=== PATIENT | female | born 2000 | race Two or more races ===

== ENCOUNTER 2024-07-06 16:05 | Emergency (ER) | payer MEDICAID, SELFPAY ==
[2024-07-06 16:05] VITALS: BMI 32.9
[2024-07-06 16:07] VITALS: BP 137/81; PULSE 88; RESP 19; TEMP 36.4; O2SAT 98
--- NOTE | 2024-07-06 16:47 | XR_ITS ---
Examination: Complete OB ultrasound, less than 14 weeks, transabdominal Date and time of exam: July 06, 2024 1714 hrs. Indications: Vaginal bleeding today, positive test one week ago Technique: Obstetrical ultrasound images less than 14 weeks performed via transabdominal imaging Findings: Uterus 9.0 x 4.8 x 4.8 cm Endometrial stripe 14 mm No uterine mass or intrauterine gestation Right ovary 2.7 x 1.3 x 1.8 cm arterial flow Left ovary 2.9 x 1.7 x 1.87 arterial flow Impression: No uterine mass or intrauterine gestation Consider transvaginal pelvic sonography follow-up
--- NOTE | 2024-07-06 16:48 | PD.EDRME ---
Rapid Medical Screening Exam RME Arrival date/time: 07/06/24 16:05 24-year-old female presents emergency department complaints of vaginal bleeding she does report she is 3 para 2 A0, is currently 7 weeks of gestation. I have greeted and performed a focused initial assessment of this patient. Initial appropriate labs ordered at this time. A comprehensive ED assessment and evaluation of the patient and analysis of all test and completion of medical decision making process will be conducted by additional ED provider. Chief Complaint: Vaginal Bleeding Time Seen by Provider: 07/06/24 16:35 Vital signs: Vital Signs Temperature 97.5 F 07/06/24 16:07 Pulse Rate 88 07/06/24 16:07 Respiratory Rate 19 07/06/24 16:07 Blood Pressure 137/81 H 07/06/24 16:07 Pulse Oximetry (%) 98 07/06/24 16:07 Oxygen Delivery Method Room Air 07/06/24 16:07
[2024-07-06 17:30] LABS: Basophils # (Auto) 0.1 Thou/mm3 (0.0-0.2); Basophils % (Auto) 1 % (0-2.5); Eosinophils % (Auto) 0 % (0-10); Hematocrit 38.2 % (36.0-46.0); Hemoglobin 12.2 g/dL (12.0-16.0); Immature Granulocytes % (Auto) 1 % (0-0); Immature Granulocytes Auto 0.06 Thou/mm3 (0.00-0.00); Lymphocytes # (Auto) 2.8 Thou/mm3 (1.0-4.8); Lymphocytes % (Auto) 26 % (10-50); Mean Corpuscular HGB Conc 31.9 g/dl (31.0-37.0); Mean Corpuscular Hemoglobin 23.4 pg (25.0-35.0); Mean Corpuscular Volume 73 fL (80-100); Monocytes # (Auto) 0.7 Thou/mm3 (0.0-0.8); Monocytes % (Auto) 7 % (0-12); Neutrophils # (Auto) 7.1 Thou/mm3 (1.8-7.7); Neutrophils % (Auto) 66 % (37-80); Nucleated Red Blood Cell % 0 /100 WBC (0); Platelet Count 321 Thou/mm3 (140-440); RDW Standard Deviation 38.1 fL (36.4-46.3); Red Blood Count 5.22 Miln/mm3 (4.00-5.20); White Blood Count 10.8 Thou/mm3 (3.6-11.0)
[2024-07-06 17:55] LABS: Collection Type, Urine Clean Catch
[2024-07-06 18:01] LABS: Bilirubin,Urine Negative (Negative); Blood,Urine 3+ (Negative); Clarity,Urine Clear (Clear/Hazy); Color,Urine Colorless (Lt Yel-Yel); Glucose, Urine Negative (Negative); Ketones,Urine Negative (Negative); Leukocyte Esterase,Urine Negative (Negative); Nitrite,Urine Negative (Negative); PH,Urine 6.5 (5.0-7.0); Protein,Urine Negative (Neg - Trace); RBC,Urine < 1 /hpf (0-3); Specific Gravity,Urine 1.005 (1.001-1.035); Squamous Epithelial Cell,Urine < 1 /hpf (0-5); Urobilinogen,Urine Negative mg/dL (0.0-1.0); WBC,Urine 1 /hpf (0-5)
[2024-07-06 18:02] LABS: Alanine Aminotransferase 15 U/L (10-49); Albumin, Serum 5.2 gm/dL (3.5-5.0); Albumin/Globulin Ratio 1.9 (1.2-2.2); Alkaline Phosphatase 60 U/L (46-116); Anion Gap 9 (7-16); Aspartate Amino Transferase 20 U/L (0-34); BUN/Creatinine Ratio 11 Ratio (12-20); Beta HCG,Quantitative 699 mIU/mL (<5.0); Bilirubin,Total 0.4 mg/dL (0.3-1.2); Blood Urea Nitrogen 9 mg/dL (9-23); Calcium 10.3 mg/dL (8.3-10.6); Calcium (Corrected) 10.3 mg/dL (8.5-10.1); Carbon Dioxide 24.1 mMol/L (20.0-31.0); Chloride 105 mMol/L (98-107); Creatinine (Component) 0.8 mg/dL (0.6-1.3); Estimated Creatinine Clearance 107.4 mL/min (>60); Globulin 2.7 gm/dL (2.3-3.5); Glucose 88 mg/dL (74-106); Osmolality,Calculated 273 (275-295); Potassium 3.5 mMol/L (3.4-5.1); Sodium 138 mMol/L (136-145); Total Protein 7.9 gm/dL (5.7-8.2); eGFR > 60 See Note
--- NOTE | 2024-07-06 20:00 | EDNOTE_ITS ---
ED OB Contraction Preg RMI/HPI General Chief complaint: Vaginal Bleeding Stated complaint: VAG BLEEDING 6 WEEKS PREG Time Seen by Provider: 07/06/24 16:35 Arrival date/time: 07/06/24 16:05 RME / HPI RME / HPI Narrative: 24-year-old female presents emergency department complaints of vaginal bleeding she does report she is 3 para 2 A0, is currently 7 weeks of gestation. Bleeding started earlier today, initially mild getting worse this time associated with dark-colored blood. Denies any abdominal pain. Denies any other complaints no medications taken prior to arrival. Related Data Home Medications ?Medication ?Instructions ?Recorded ?Confirmed ferrous sulfate 325 mg (65 mg 325 mg PO QDAY 01/11/19 07/04/19 iron) tablet vit no.95-ferrous 1 tab PO QDAY 01/11/19 07/04/19 fumarate 28 mg-folic acid 800 mcg tablet () Previous Rx's ?Medication ?Instructions ?Recorded hydrocodone 5 mg-acetaminophen 325 1 tab PO Q4H PRN pain #20 tabs // mg tablet Allergies Allergy/AdvReac Type Severity Reaction Status Date / Time No Known Allergies Allergy Verified 07/06/24 16:07 Review of Systems Review of Systems Narrative Review of Systems: Review of system reviewed and within normal limits except mentioned in HPI ED Exam Narrative Physical exam: VITAL SIGNS: Reviewed. GENERAL APPEARANCE: Alert and interactive, follows commands, no acute distress, HEAD AND FACE: Non-traumatic. ENT: PERRL, pink conjunctivitis, eyelid no trauma, Mucous membrane moist. NECK: Supple, nontender, no nuchal rigidity. CHEST: No tenderness, no crepitus, no paradoxical movement, no retractions. LUNGS: Clear, well ventilated, symmetric, no rales, no wheezing, no ronchi, no stridor, good breath sounds bilaterally. HEART: Regular rate, regular rhythm, no murmur, no gallops. ABDOMEN: Soft, positive bowel sounds, nondistended, no guarding, nontender, no rebound, no masses, RECTAL: Deferred. GENITAL: Deferred. NEUROLOGICAL: Gross motor function intact sensory function intact, Appropriate for age. MUSCULOSKELETAL: low back nontender, full range of motion. EXTREMITIES: Nontender, full range of motion. SKIN: Color pink, dry, no rash, no lacerations, no abrasions, no contusions. LYMPHATICS: Deferred. Course Quality Measures none Orders Category Date Time Status US OB <= 14 weeks fetus Stat Exams 07/06/24 16:47 Completed ABO/RH Type Stat Lab 07/06/24 17:05 Completed Beta HCG,Quantitative Stat Lab 07/06/24 17:05 Completed CBC Stat Lab 07/06/24 17:05 Completed Comprehensive Metabolic Panel Stat Lab 07/06/24 17:05 Completed Urinalysis Stat Lab 07/06/24 17:36 Completed Urine Culture Stat Lab 07/06/24 17:36 Received Vital Signs Vital signs: Vital Signs Temperature 97.5 F 07/06/24 16:07 Pulse Rate 88 07/06/24 16:07 Respiratory Rate 19 07/06/24 16:07 Blood Pressure 137/81 H 07/06/24 16:07 Pulse Oximetry (%) 98 07/06/24 16:07 Oxygen Delivery Method Room Air 07/06/24 16:07 Vaginal Bleeding MDM Narrative MDM Narrative: 24-year-old female presents emergency department complaints of vaginal bleeding she does report she is 3 para 2 A0, is currently 7 weeks of gestation. Bleeding started earlier today, initially mild getting worse this time associated with dark-colored blood. Denies any abdominal pain. Denies any other complaints no medications taken prior to arrival. Laboratory workup is significant for hCG of 699. The rest of the labs unremarkable. Ultrasound showed no IUP seen no abnormality noted. Patient data External records reviewed:: None Clinical information provided by:: patient Social determinants that could affect healthcare access:: none Patient has the following chronic illnesses:: None How is presenting disease/condition affected by chronic disease/condition?: no chronic disease Evaluation data The following diagnostics were reviewed and interpreted by me:: lab results and radiology exam(s) Lab and/or radiology exams considered but not ordered:: None Interpretation Summary: Laboratory workup is significant for hCG of 699. The rest of the labs unremarkable. Ultrasound showed no IUP seen no abnormality noted Medications / Prescriptions Medications or Prescriptions considered but not ordered:: None Medication administrations:: None Consultations Consultation(s) initiated? (list below): No Diagnosis Vaginal Bleeding Differential Diagnosis: threatened , vaginal bleeding and other ( vaginal bleeding) Most likely diagnosis given after review of the tests above:: Threatened Admission Indicated Admission indicated?: not indicated Explain why admission is indicated or not indicated:: Stable Admission Request Was there a request for admission?: No Disposition Plan Disposition Plan: Discharge Discharge Attestation Discharge Attestation: The patient was given an opportunity to ask questions and understood the discharge instructions. Discharge instructions specifically effects, indications for sooner follow up or return to the emergency department, and the expected course of current diagnosis. Patient condition: Stable Discharge Plan Plan Patient Disposition: HOME (Self Care) Disposition Comment: stable Prescriptions/Referrals Prescriptions/Med Rec: No Action hydrocodone-acetaminophen 5-325 mg tablet 1 tab PO Q4H MDD 5 PRN (Reason: pain) Qty: 20 0RF ferrous sulfate 325 mg (65 mg iron) tablet 325 mg PO QDAY PNV cmb#95-ferrous fumarate-FA [] 28 mg iron- 800 mcg tablet 1 tab PO QDAY Referrals: Elizabeth Olivo PA-C [Primary Care Provider] - In 1 week Problem List Clinical Impression: Threatened Patient/Caregiver Discharge Instructions Education Materials: ED Possible Miscarriage ... Additional Instructions: Thank you for the opportunity for serving you today. You are stable for disch arged . You are advised to: Follow-up with your HISTORICAL SITE GUIDE in 1 to 2 days Return to ED for worsening of symptoms Increase oral fluids Return to emergency room in 3 days for repeat hCG if you cannot see your HISTORICAL SITE GUIDE before that. Print Language: Ugandan Stand Alone Forms: Sita Award Info., Patient Portal Info Letter KATHRYN/ESTELLA Supervising Physician SUE Supervising Physician: MD Sharon
== END 2024-07-06 20:09 | disposition home or self-care (01) ==
PROVIDERS: Nurse Practitioner Primary Care; Emergency Provider Emergency Medicine; PCP Physician Assistant
DX: O20.0 Threatened abortion (principal); Z3A.01 Less than 8 weeks gestation of pregnancy
CPT/HCPCS: 36415; 76801; 80053; 81001; 84702; 85025; 86900; 86901; 87086; 99284

== ENCOUNTER 2024-07-09 14:16 | Emergency (ER) | payer MEDICAID, SELFPAY ==
[2024-07-09 14:53] VITALS: BP 139/83; PULSE 84; RESP 16; TEMP 37.2; O2SAT 100; BMI 31.2
--- NOTE | 2024-07-09 15:05 | PD.EDVAGBL ---
ED OB Contraction Preg RMI/HPI General Chief complaint: General Adult/Misc Complain Stated complaint: WANTS HCG LEVEL CHECK FOR A MISCARRIAGE Time Seen by Provider: 07/09/24 14:42 Source: patient Arrival date/time: 07/09/24 14:16 24-year-old female approximately 7 weeks presents emergency department requesting repeat hCG due to recent visit for vaginal bleeding and has not seen [employer] [employer]. Patient reports vaginal bleeding has improved. Patient denies any fever, chills, flank pain, dysuria, abdominal cramping, or any other associated symptom. Mode of arrival: ambulatory Limitations: no limitations Related Data Home Medications ?Medication ?Instructions ?Recorded ?Confirmed ferrous sulfate 325 mg (65 mg 325 mg PO QDAY 01/11/19 07/04/19 iron) tablet vit no.95-ferrous 1 tab PO QDAY 01/11/19 07/04/19 fumarate 28 mg-folic acid 800 mcg tablet () Previous Rx's ?Medication ?Instructions ?Recorded hydrocodone 5 mg-acetaminophen 325 1 tab PO Q4H PRN pain #20 tabs 07/26/ mg tablet Allergies Allergy/AdvReac Type Severity Reaction Status Date / Time No Known Allergies Allergy Verified 07/06/24 16:07 Review of Systems Review of Systems Systems Reviewed: All systems reviewed, normal except as documented Constitutional Constitutional: Reports system reviewed and no additional complaints, except as documented, Denies body ache(s), Denies chills and Denies fever(s) Eyes Eyes: Reports system reviewed and no additional complaints, except as documented and Denies change in vision ENT Ears, Nose, Mouth, and Throat: Reports system reviewed and no additional complaints, except as documented, Denies disequilibrium, Denies dizziness, Denies sore throat and Denies vertigo Cardiovascular Cardiovascular: Reports system reviewed and no additional complaints, except as documented, Denies chest pain and Denies dyspnea Respiratory Respiratory: Reports system reviewed and no additional complaints, except as documented, Denies chest congestion, Denies cough and Denies dyspnea Gastrointestinal Gastrointestinal: Reports system reviewed and no additional complaints, except as documented, Denies abdominal pain, Denies nausea and Denies vomiting Genitourinary Genitourinary: Reports abnormal vaginal bleeding Musculoskeletal Musculoskeletal: Reports system reviewed and no additional complaints, except as documented, Denies abnormal gait and Denies arthralgias Integumentary/Breasts Skin/Breast: Reports system reviewed and no additional complaints, except as documented, Denies erythema, Denies rash and Denies wounds Neurologic Neurologic: Reports system reviewed and no additional complaints, except as documented, Denies abnormal gait, Denies disequilibrium, Denies dizziness and Denies vertigo Past Medical History Past Medical History NEUROLOGIC: Negative Neurological Disorders CARDIAC: Negative Cardiac Disorders or Congestive Heart Failure RESPIRATORY: Negative Chronic Obstructive Pulmonary Disease (COPD) GASTROINTESTINAL: Negative Gastrointestinal Disorders GENITOURINARY: Positive Genitourinary Disorders and Kidney Stones; Negative Renal Disease REPRODUCTIVE: Negative Genital Herpes, Gonorrhea, Pelvic Inflammatory Disease or Syphilis MUSCULOSKELETAL: Negative Musculoskeletal Disorders ENDOCRINE: Negative Endocrine Disorders, Diabetes Mellitus Type 1 or Diabetes Mellitus Type 2 HEMATOLOGIC: Negative Blood Disorders OTHER HISTORY: Positive Hospitalization (LABOR); Negative Autoimmune Disease, Falls, Blood Transfusions, Blood Transfusion Reaction, Anesthesia Reactions, MRSA, Human Immunodeficiency Virus (HIV), Chicken Pox, Measles, Mumps, Rubella (Nigerien Measles), Pertussis, Clostridium Difficile or Cancer Family History FAMILY HISTORY: Negative Family Psychiatric Problems, Family Respiratory Disorders, Family Cardiac Disorders, Family Gastrointestinal Problems, Family Cancer, Family Surgery or Family Anesthesia Reaction Surgical History SURGICAL: Negative Section Social History SMOKING STATUS: Never smoker ED Exam General Limitations: Present no limitations General appearance: Present alert and in no apparent distress Head Head exam: Present atraumatic Eye Eye exam: Present normal appearance, PERRL and EOMI ENT ENT exam: Present normal exam, normal oropharynx and mucous membranes moist Neck Neck exam: Present normal inspection, full ROM and trachea midline Chest Chest inspection: Present normal inspection and symmetric chest wall rise Respiratory Respiratory exam: Present normal lung sounds bilaterally Cardiovascular Cardiovascular exam: Present regular rate, normal rhythm and normal heart sounds Abdominal Exam Abdominal exam: Present soft and normal bowel sounds Extremities Exam Extremities exam: Present normal inspection and full ROM Back Exam Back exam: Present normal inspection and full ROM Neurological Exam Neurological exam: Present alert, oriented X3 and CN II-XII intact Psychiatric Psychiatric exam: Present normal affect and normal mood Skin Skin exam: Present warm, dry, intact and normal color Course Quality Measures none Orders Category Date Time Status Beta HCG,Quantitative Stat Lab 07/09/24 15:34 Completed HCG,Qualitative Serum Stat Lab 07/09/24 15:34 Completed Urinalysis, C/S if Indicated Stat Lab 07/09/24 15:50 Completed Vital Signs Vital signs: Vital Signs Temperature 98.9 F 07/09/24 14:53 Pulse Rate 84 07/09/24 14:53 Respiratory Rate 16 07/09/24 14:53 Blood Pressure 139/83 H 07/09/24 14:53 Pulse Oximetry (%) 100 07/09/24 14:53 Oxygen Delivery Method Room Air 07/09/24 14:53 100% room air within normal limits Vaginal Bleeding MDM Narrative MDM Narrative: 24-year-old female approximately 7 weeks presents emergency department requesting repeat hCG due to recent visit for vaginal bleeding and has not seen [employer] [employer]. Patient reports vaginal bleeding has improved. Patient denies any fever, chills, flank pain, dysuria, abdominal cramping, or any other associated symptom. Patient appears nontoxic and hemodynamically stable. Patient reports changes 1 pad per day due to vaginal bleeding. Patient reports significantly improved and bleeding. Beta-hCG 66 downtrending compared to previous above 600s. Patient discharged and instructed to follow-up with [employer] to have repeat ultrasound and instructed to return to emergency department for any worsening symptoms or as needed. Patient data External records reviewed:: [facility] previous records Clinical information provided by:: patient Social determinants that could affect healthcare access:: none Patient has the following chronic illnesses:: see chart How is presenting disease/condition affected by chronic disease/condition?: no chronic disease Evaluation data The following diagnostics were reviewed and interpreted by me:: lab results Lab and/or radiology exams considered but not ordered:: Ordered Interpretation Summary: Interpreted by me Medications / Prescriptions Medications or Prescriptions considered but not ordered:: n/a Medication administrations:: n/a Consultations Consultation(s) initiated? (list below): No Diagnosis Vaginal Bleeding Differential Diagnosis: missed , threatened , dysfunctional uterine bleeding, incomplete and vaginal bleeding Most likely diagnosis given after review of the tests above:: Vaginal bleeding affecting early Admission Indicated Admission indicated?: not indicated Admission Request Was there a request for admission?: No Disposition Plan Disposition Plan: Discharge Discharge Attestation Discharge Attestation: The patient and all family members were given an opportunity to ask questions and understood the discharge instructions. Discharge instructions specifically effects, indications for sooner follow up or return to the emergency department, and the expected course of current diagnosis. Patient condition: Stable Discharge Plan Plan Patient Disposition: HOME (Self Care) Disposition Comment: Stable Prescriptions/Referrals Prescriptions/Med Rec: No Action hydrocodone-acetaminophen 5-325 mg tablet 1 tab PO Q4H MDD 5 PRN (Reason: pain) Qty: 20 0RF ferrous sulfate 325 mg (65 mg iron) tablet 325 mg PO QDAY PNV cmb#95-ferrous fumarate-FA [] 28 mg iron- 800 mcg tablet 1 tab PO QDAY Referrals: Elizabeth Olivo PA-C [Primary Care Provider] - In 1 week Problem List Clinical Impression: Vaginal bleeding affecting early Patient/Caregiver Discharge Instructions Discharge Activity: activity as tolerated Education Materials: Bleeding During Early Additional Instructions: Drink plenty of fluids and stay hydrated. Close follow-up with primary care provider and request referral to [employer] for repeat ultrasound and continued monitoring of beta-hCG. Return to the emergency department immediately if any worsening symptoms or as needed. Print Language: Frisian Stand Alone Forms: Sita Award Info., Patient Portal Info Letter Attestation Attestation The patient was seen by the midlevel practitioner. I, the co-signing physician, was present during the entire ER visit. While I did not physically examine the patient, I was available for consultation as needed.
[2024-07-09 16:01] LABS: Collection Type, Urine Clean Catch
[2024-07-09 16:23] LABS: Bilirubin,Urine Negative (Negative); Blood,Urine 3+ (Negative); Clarity,Urine Clear (Clear/Hazy); Color,Urine Lt-Yellow (Lt Yel-Yel); Culture Indicated,Urine Not Indicated; Glucose, Urine Negative (Negative); Ketones,Urine Negative (Negative); Leukocyte Esterase,Urine Positive (Negative); Nitrite,Urine Negative (Negative); Protein,Urine Negative (Neg - Trace); RBC,Urine 1 /hpf (0-3); Specific Gravity,Urine 1.012 (1.001-1.035); Squamous Epithelial Cell,Urine 6 /hpf (0-5); Urobilinogen,Urine Negative mg/dL (0.0-1.0); WBC,Urine 6 /hpf (0-5)
[2024-07-09 16:37] LABS: HCG,Qualitative Serum Positive
[2024-07-09 17:01] LABS: Beta HCG,Quantitative 77 mIU/mL (<5.0)
== END 2024-07-09 17:37 | disposition home or self-care (01) ==
PROVIDERS: Emergency Provider Emergency Medicine; PCP Physician Assistant
DX: O20.9 Hemorrhage in early pregnancy, unspecified (principal); Z3A.01 Less than 8 weeks gestation of pregnancy
CPT/HCPCS: 36415; 81001; 84702; 84703; 99283

== ENCOUNTER → 2024-07-30 | Outpatient (CLI) | payer MEDICAID, SELFPAY ==
--- NOTE | 2024-07-30 | XR_ITS ---
Examination: Complete OB ultrasound, less than 14 weeks, transabdominal Date and time of exam: July 30, 2024 1154 hours INDICATIONS: Vaginal bleeding beginning one month ago Technique: Obstetrical ultrasound images less than 14 weeks performed via transabdominal imaging Findings: Uterus 10.3 x 4.0 x 5.6 cm No intrauterine gestation No retained products Endometrial stripe 0.9 cm Right ovary 3.0 x 2.1 x 3.0 cm arterial flow Left ovary 3.1 x 2.1 x 2.0 cm arterial flow No fluid in the cul-de-sac IMPRESSION: No intrauterine gestation or retained product of conception
== END | disposition home or self-care (01) ==
LOC: CDIM 11:34
PROVIDERS: PCP Physician Assistant; Referring Provider Physician Assistant; Visit Provider Physician Assistant
DX: N93.9 Abnormal uterine and vaginal bleeding, unspecified (principal)
CPT/HCPCS: 76801